=== PATIENT | female | born 1980 | race Caucasian/White ===

== ENCOUNTER → 2017-05-02 | Outpatient (CLI) | payer OTHER ==
[~2017-05-02] MED LIST: BUPIVACAINE MPF 0.25% 10 ML VIAL. ONE; LIDOCAINE 1% PF 30 ML VIAL. ONE
== END | disposition home or self-care (01) ==
LOC: SURG 11:52
PROVIDERS: ATTEND Anesthesiology Pain Medicine
DX: M47.812 Spondylosis without myelopathy or radiculopathy, cervical region (principal); M19.90 Unspecified osteoarthritis, unspecified site; E07.9 Disorder of thyroid, unspecified
CPT/HCPCS: 64490; 64491; 64492; J2001; J3490; 99213

== ENCOUNTER → 2017-06-07 | Outpatient (CLI) | payer OTHER ==
[~2017-06-07] MED LIST changes: +BUPR300T3 PO; +DEXAMETHASONE SOD PHOS 4 MG/ML VIAL ONE; +FESO8TAB PO; +IV RINGERS SOLUTION,LACTATED 1,000 ML IV ONE; +LISD20CA4 PO; +MIDAZOLAM HCL PF 2 MG/2 ML VIAL. IV ONE; +MIDAZOLAM HCL PF 2 MG/2 ML VIAL. ONE
[2017-06-07 14:14] VITALS: BP 129/91
== END ==
LOC: SURG 11:12
PROVIDERS: ATTEND Anesthesiology Pain Medicine
DX: M79.1 Myalgia (principal); Z87.39 Personal history of other diseases of the musculoskeletal system and connective tissue
CPT/HCPCS: 20553; J1100; J2001; J2250; J3010; J3490; J7120; 62323; 64490; 64491; 99152; 99153